=== PATIENT | male | born 1980 | race Two or more races ===

== ENCOUNTER 2021-05-29 17:44 | Emergency (ER) | payer SELFPAY ==
[~2021-05-29] VITALS: Ht 175.3 cm; Wt 81.6 kg
[2021-05-29 17:44] VITALS: BP 113/64
== END 2021-05-29 19:04 | disposition left against medical advice (07) ==
LOC: ER 17:44
DX: T50.7X1A Poisoning by analeptics and opioid receptor antagonists, accidental (unintentional), initial encounter (principal); Z53.21 Procedure and treatment not carried out due to patient leaving prior to being seen by health care provider; Y92.89 Other specified places as the place of occurrence of the external cause